=== PATIENT | female | born 1995 | race Two or more races ===

== ENCOUNTER 2019-02-02 12:42 | Inpatient (IN) | payer MEDICAID ==
[2019-02-02] MEDS ORDERED: METHYLERGONOVINE 0.2 MG INJ IM (16:30)
[2019-02-02] MEDS ORDERED: CARBOPROST 250 MCG INJ IM (16:30)
[2019-02-02] MEDS ORDERED: BUTORPHANOL 2 MG INJ IV (16:30)
[2019-02-02] MEDS ORDERED: OXYTOCIN 30 UNITS/LR 500 ML IV (16:30)
[2019-02-02] MEDS ORDERED: MISOPROSTOL 200 MCG TAB PR (16:30)
[2019-02-02] MEDS ORDERED: LIDOCAINE 1% (MPF) 30 ML INJ INJ (16:30)
[2019-02-02] MEDS ORDERED: IBUPROFEN 600 MG TAB PO (16:30)
[2019-02-02] MEDS: LACTATED RINGER'S 1,000 ML IV ×3 (16:32→18:20)
[2019-02-02 16:33] LABS: ADD MAN DIFF? NO
[2019-02-02 16:36] LABS: WHITE BLOOD COUNT 7.9 10^3/ul (4.8-10.8)
[2019-02-02 16:36] LABS: BASOPHILS % 0.1 % (0.0-2.0); EOSINOPHILS % 0.3 % (0.0-7.0); HEMATOCRIT 39.3 % (37.0-47.0); HEMOGLOBIN 13.4 g/dl (12.0-16.0); LYMPHOCYTES # 1.5 10^3/ul (0.8-2.9); LYMPHOCYTES % 19.5 % (15.0-51.0); MEAN CORPUSCULAR HEMOGLOBIN 29.5 pg (29.0-33.0); MEAN CORPUSCULAR HGB CONC 34.1 g/dl (32.0-37.0); MEAN CORPUSCULAR VOLUME 86.4 fl (82.0-101.0); MEAN PLATELET VOLUME 11.5 fl (7.4-10.4); MONOCYTE # 0.5 10^3/ul (0.3-0.9); NEUTROPHIL # 5.8 10^3/ul (1.6-7.5); NEUTROPHILS % 73.7 % (39.0-77.0); PLATELET COUNT 167 10^3/UL (140-415); RED BLOOD COUNT 4.55 10^6/ul (4.20-5.40); RED CELL DISTRIBUTION WIDTH 12.7 % (11.5-14.5)
[2019-02-02 17:16] LABS: HEPATITIS B SURFACE ANTIGEN NEGATIVE (NEGATIVE)
[2019-02-02 17:21] LABS: INR 0.88; PT RATIO 0.9
[2019-02-02 17:22] LABS: PARTIAL THROMBOPLASTIN TIME 28.1 Sec (23.0-35.0)
[2019-02-02] MEDS ORDERED: FENTAnyl 2MCG/ML-ROPIV 0.2% 100 ML (17:40)
[2019-02-02] MEDS ORDERED: ONDANSETRON 4 MG INJ IV (18:30)
[2019-02-02] MEDS ORDERED: NALOXONE (0.4 MG/ML) INJ IV (18:30)
[2019-02-02 21:49] LABS: RAPID PLASMA REAGIN NONREACTIVE (NR)
[2019-02-03] MEDS ORDERED: MINERAL OIL LIGHT 10 ML VIAL TOP (00:30)
[2019-02-03] MEDS: OXYTOCIN 30 UNITS/LR 500 ML IV ×4 (00:38→22:59)
[2019-02-03] MEDS: LACTATED RINGER'S 1,000 ML IV ×4 (01:39→13:37)
[2019-02-03] MEDS: FENTAnyl 2MCG/ML-ROPIV 0.2% 100 ML BAG EPI ×3 (02:07→17:09)
[2019-02-03] MEDS ORDERED: METHYLERGONOVINE 0.2 MG INJ IM (18:00)
[2019-02-03] MEDS ORDERED: CARBOPROST 250 MCG INJ IM (18:00)
[2019-02-03] MEDS ORDERED: OXYTOCIN 30 UNITS/LR 500 ML IV (18:00)
[2019-02-03] MEDS ORDERED: NACL 0.9% 3 ML SYG IV (18:00)
[2019-02-03] MEDS ORDERED: SENNA/DOCUSATE NA (8.6MG/50MG) TAB PO (18:00)
[2019-02-03] MEDS ORDERED: MISOPROSTOL 200 MCG TAB PR (18:00)
[2019-02-03] MEDS: IBUPROFEN 600 MG TAB PO ×2 (18:29→23:47)
[2019-02-03] MEDS: LANOLIN HPA 1 PKT TOP (19:56)
[2019-02-03] MEDS: BENZOCAINE 20% 56 ML SPRAY TOP (19:56)
[2019-02-03] MEDS: WITCH HAZEL/GLYCERIN PAD PR (19:56)
[2019-02-03] MEDS: SENNA/DOCUSATE NA (8.6MG/50MG) TAB PO (21:23)
[2019-02-04] MEDS: IBUPROFEN 600 MG TAB PO ×4 (05:44→23:47)
[2019-02-04 08:22] LABS: ADD MAN DIFF? NO
[2019-02-04 08:28] LABS: BASOPHILS % 0.3 % (0.0-2.0); EOSINOPHILS # 0.1 10^3/ul (0.0-0.5); EOSINOPHILS % 0.5 % (0.0-7.0); HEMATOCRIT 32.9 % (37.0-47.0); HEMOGLOBIN 11.2 g/dl (12.0-16.0); LYMPHOCYTES % 16.4 % (15.0-51.0); MEAN CORPUSCULAR HEMOGLOBIN 29.6 pg (29.0-33.0); MEAN CORPUSCULAR VOLUME 86.8 fl (82.0-101.0); MEAN PLATELET VOLUME 11.8 fl (7.4-10.4); MONOCYTE # 0.7 10^3/ul (0.3-0.9); MONOCYTES % 6.2 % (0.0-11.0); NEUTROPHIL # 9.1 10^3/ul (1.6-7.5); NEUTROPHILS % 76.3 % (39.0-77.0); PLATELET COUNT 136 10^3/UL (140-415); RED BLOOD COUNT 3.79 10^6/ul (4.20-5.40); RED CELL DISTRIBUTION WIDTH 12.9 % (11.5-14.5)
[2019-02-04 08:28] LABS: WHITE BLOOD COUNT 11.9 10^3/ul (4.8-10.8)
[2019-02-04] MEDS: SENNA/DOCUSATE NA (8.6MG/50MG) TAB PO ×2 (09:29→21:16)
[2019-02-04] MEDS: OXYCODONE/ASPIRIN (4.88/325) TAB PO (21:16)
[2019-02-05] MEDS: IBUPROFEN 600 MG TAB PO (06:26)
[2019-02-05] MEDS: DIPHTH/TET/ACEL PERTUSS (ADULT) 0.5 ML VIAL IM* (09:00)
[2019-02-05] MEDS: SENNA/DOCUSATE NA (8.6MG/50MG) TAB PO (09:00)
== END 2019-02-05 12:58 | disposition home or self-care (01) | DRG 807 ==
LOC: OBT 12:42 → PP1 02-03 19:50 → L-D 12:42 → OBT 15:18 → L-D 15:18
PROVIDERS: Obstetrics & Gynecology
PROC: 10E0XZZ Delivery of Products of Conception, External Approach (ICD-10-PCS; principal; 2019-02-03)
PROC: 0KQM0ZZ Repair Perineum Muscle, Open Approach (ICD-10-PCS; 2019-02-03)
DX: O48.0 Post-term pregnancy (principal); Z37.0 Single live birth; O70.1 Second degree perineal laceration during delivery; Z3A.40 40 weeks gestation of pregnancy
CPT/HCPCS: 62322; 76815; 76818; 85025; 85610; 85730; 86592; 86850; 86900; 86901; 87340